=== PATIENT | female | born 1950 | race Caucasian/White ===

== ENCOUNTER → 2016-10-05 | Outpatient (CLI) | payer MEDICARE, BC ==
[~2016-10-05] MED LIST: ASPIRIN 81M81 MG/TA2 PO; BYSTOLIC5 MG PO; CENTANY AT2% TP; CO Q-1010 M1 PO; CRANBERRY1 POW; GLUCOSAMINE SUL1 POW; LINSEED OIL 1 ML1 ML; MULTIPLE VITAMI1 CAP PO; ZOCOR 40MG40 MG PO
== END ==
LOC: COL.CARD 13:23
DX: I47.2 Ventricular tachycardia (principal); R55 Syncope and collapse

== ENCOUNTER → 2016-10-09 | Outpatient (CLI) | payer MEDICARE, BC | LOC: MC.RAD 11:04 | DX: Z12.31 Encounter for screening mammogram for malignant neoplasm of breast (principal) ==

== ENCOUNTER 2016-10-30 14:04 | Outpatient (CLI) | payer MEDICARE, BC ==
[~2016-10-30] VITALS: Ht 170.2 cm; Wt 95.4 kg
[~2016-10-30 14:04] MED LIST changes: -ASPIRIN 81M81 MG/TA2 PO; -CENTANY AT2% TP; -CO Q-1010 M1 PO; -CRANBERRY1 POW; -GLUCOSAMINE SUL1 POW; -LINSEED OIL 1 ML1 ML; -MULTIPLE VITAMI1 CAP PO
[2016-10-30 15:57] VITALS: BP 118/77; PULSE 63; TEMP 98.4
[2016-10-30] MEDS ORDERED: GLUCOSAMINE SUL1 POW (16:01)
[2016-10-30] MEDS ORDERED: CENTANY AT2% TP (16:01)
[2016-10-30] MEDS ORDERED: CO Q-1010 M1 PO (16:02)
[2016-10-30] MEDS ORDERED: ASPIRIN 81M81 MG/TA2 PO (16:02)
[2016-10-30] MEDS ORDERED: LINSEED OIL 1 ML1 ML (16:02)
[2016-10-30] MEDS ORDERED: MULTIPLE VITAMI1 CAP PO (16:03)
[2016-10-30] MEDS ORDERED: CRANBERRY1 POW (16:03)
[2016-10-30 16:13] LABS: HEMATOCRIT 40.2 % (37.0-47.0); HEMOGLOBIN 12.9 g/dl (12.5-16.0); MEAN CELL VOLUME 88 fl (80.0-100.0); MEAN CORPUSCULAR HEMOGLOBIN 28 pg (27.0-31.0); MEAN CORPUSCULAR HGB CONC 32 g/dl (33.0-37.0); PLATELET COUNT 280 K/mm3 (130-400); RED BLOOD COUNT 4.56 M/mm3 (4.10-5.30); REDCELL DISTRIBUTION WIDTH-CV 13.7 % (11.5-14.5); WHITE BLOOD COUNT 7.6 K/mm3 (4.8-10.8)
== END 2016-10-30 17:27 | disposition home or self-care (01) ==
LOC: COL.RAD 14:04
PROVIDERS: Internal Medicine Interventional Cardiology
DX: R06.02 Shortness of breath (principal); R55 Syncope and collapse
CPT/HCPCS: C1764

== ENCOUNTER → 2024-05-05 | Outpatient (CLI) | payer MEDICARE, BC ==
[~2024-05-05] MED LIST changes: +ASPIRIN 81M81 MG/TA2 PO; +CENTANY AT2% TP; +CO Q-1010 M1 PO; +CRANBERRY1 POW; +GLUCOSAMINE SUL1 POW; +LINSEED OIL 1 ML1 ML; +MULTIPLE VITAMI1 CAP PO
== END ==
LOC: COL.RAD 13:35
DX: M51.34 Other intervertebral disc degeneration, thoracic region (principal)